=== PATIENT | female | born 1960 | race Caucasian/White ===

== ENCOUNTER 2019-12-11 13:17 | Outpatient (CLI) | payer OTHER, SELFPAY ==
--- NOTE | 2019-12-11 13:30 | XR_ITS ---
WS: [id number] RIGHT KNEE: 3 VIEW(S) TECHNIQUE: AP, oblique(s) and lateral. HISTORY: KNEE PAIN COMPARISON: 08/24/2011 No fracture or dislocation. No joint space narrowing or osteophytes. Small suprapatellar effusion. No soft tissue abnormality. XR/XR knee RT 3V* [id number] IMPRESSION: Small suprapatellar effusion. Otherwise negative.
== END 2019-12-11 13:18 | disposition home or self-care (01) ==
LOC: RADWPI 13:23
PROVIDERS: Family Provider Family Medicine; PCP Family Medicine; Visit Provider Physician Assistant
DX: M25.561 Pain in right knee (principal); M25.461 Effusion, right knee
CPT/HCPCS: 73562

== ENCOUNTER 2020-04-16 10:32 | Outpatient (CLI) | payer OTHER, SELFPAY ==
--- NOTE | 2020-04-16 10:35 | MM_ITS ---
WS: [id number] Exam: [place] [id number] Date/Time of Exam: 04/16/2020 10:49 AM Reason For Exam: SCREENING VIEWS: MLO and CC views both breasts. Comparison made with prior exam of 12/16/2016. Findings: There was no sign of mass, architectural distortion or suspicious calcification in either breast. He terogeneously dense MM/[place] [id number] Impression: BI-RADS: 2-Benign FOLLOW-UP: 1 Year Follow-up This mammogram was also analyzed by the Computer Aided Detection System [employer].
== END 2020-04-16 10:33 | disposition home or self-care (01) ==
LOC: RADSHAW 10:34
PROVIDERS: Family Provider Family Medicine; PCP Family Medicine; Visit Provider Family Medicine
DX: Z12.31 Encounter for screening mammogram for malignant neoplasm of breast (principal)
CPT/HCPCS: 77067

== ENCOUNTER → 2021-07-15 15:56 | Outpatient (BNVA) | payer SELFPAY | PROVIDERS: Referring Provider Family Medicine; Visit Provider Podiatrist Foot & Ankle Surgery | DX: M79.671 Pain in right foot (principal); M21.611 Bunion of right foot | CPT/HCPCS: 73630 ==

== ENCOUNTER 2022-02-10 14:03 | Outpatient (CLI) | payer OTHER, SELFPAY ==
--- NOTE | 2022-02-10 14:14 | MM_ITS ---
WS: [id number] BILATERAL SCREENING DIGITAL TOMOSYNTHESIS MAMMOGRAM WITH CAD HISTORY: SCREENING COMPARISON: 04/16/2020 and 03/14/2019 Bilateral CC and MLO views with tomosynthesis and synthetic mammography submitted. Computer aided det ection analyzed. Breast composition: The breasts are heterogeneously dense, which may obscure small masses. No suspici ous masses, microcalcifications or architectural distortion. Benign calcification LEFT breast. MM/[place] [id number] IMPRESSION: BI-RADS: 2-Benign FOLLOW UP: 1 Year Follow-up
== END 2022-02-10 14:04 | disposition home or self-care (01) ==
LOC: RAD 14:05
PROVIDERS: PCP Family Medicine; Visit Provider Family Medicine
DX: Z12.31 Encounter for screening mammogram for malignant neoplasm of breast (principal)
CPT/HCPCS: 77063; 77067

== ENCOUNTER 2022-03-31 06:52 | Outpatient (CLI) | payer SELFPAY ==
[2022-03-31 07:53] LABS: HF Add Manual Diff No
[2022-03-31 08:20] LABS: Estmated Average Glucose 105; Hemoglobin A1C 5.3 % (4.0-6.0)
[2022-03-31 08:45] LABS: Basophils # 0.1 10^3/uL (0.0-0.1); Basophils % 0.5 %; Eosinophils # 0.3 10^3/uL (0.0-0.8); Hemoglobin 12.7 g/dL (11.5-15.3); Lymphocytes # 2.3 10^3/uL (0.8-4.8); Lymphocytes % 24.1 %; Mean Corpuscular HGB Conc 31.8 g/dL (30.0-36.0); Mean Corpuscular Hemoglobin 27.6 pg (28.0-34.0); Mean Platelet Volume 9.7 fL (7.4-10.4); Monocytes # 0.7 10^3/uL (0.2-0.9); Monocytes % 6.9 %; Neutrophils # 6.18 10^3/uL (1.8-7.7); Neutrophils % 64.7 %; Nucleated Red Blood Cells % 0 %; Platelet Count 397 10^3/cmm (130-400); Red Cell Distribution Width 13.2 % (12.1-15.1); White Blood Count 9.6 10^3/uL (4.0-10.0)
[2022-03-31 08:52] LABS: 25 Hydroxy Vitamin D 31 ng/mL (30-100); Alanine Aminotransferase 16 U/L (0-33); Alkaline Phosphatase 102 U/L (35-105); Anion Gap 14.6 (5-19); Aspartate Amino Transferase 15 U/L (0-32); Blood Urea Nitrogen 11 mg/dL (8-23); Calcium 9.3 mg/dL (8.5-10.5); Carbon Dioxide 28 mmol/L (22-29); Chloride 98 mmol/L (98-107); Chol HDL Ratio 4.74 mg/dL (0.0-4.40); Cholesterol 313 mg/dL (0-200); Globulin 3.2 g/dL (1.3-4.6); Glomerular Filtration Rate 125.4 mL/min (90-130); Glucose 102 mg/dL (65-115); HDL Cholesterol 66 mg/dL (60-100); LDL Cholesterol Calculated 202 mg/dL (50-129); LDL HDL Ratio 3.06 RATIO (0.00-3.22); Osmolality Calculated 284 mOsm/kg (285-295); Potassium 3.6 mmol/L (3.5-5.1); Sodium 137 mmol/L (136-145); Thyroid Stimulating Hormone 2.21 uIU/mL (0.27-4.20); Total Bilirubin 0.4 mg/dL (0.15-1.2); Total Protein 7.2 g/dL (6.6-8.7); Triglycerides 224 mg/dL (0-150)
== END 2022-03-31 06:53 | disposition home or self-care (01) ==
LOC: LAB 06:56
PROVIDERS: PCP Family Medicine; Visit Provider Dermatology
DX: Z01.89 Encounter for other specified special examinations (principal)
CPT/HCPCS: 36415

== ENCOUNTER → 2022-10-27 15:30 | Outpatient (BNVA) | payer OTHER, SELFPAY | PROVIDERS: PCP Family Medicine; Visit Provider Family Medicine | DX: M19.079 Primary osteoarthritis, unspecified ankle and foot (principal); M21.611 Bunion of right foot; S91.002A Unspecified open wound, left ankle, initial encounter; X58.XXXA Exposure to other specified factors, initial encounter | CPT/HCPCS: 87070 ==

== ENCOUNTER 2023-02-08 07:50 | Outpatient (CLI) | payer OTHER, SELFPAY ==
[2023-02-08 08:30] LABS: Chol HDL Ratio 5.71 mg/dL (0.0-4.40); Cholesterol 297 mg/dL (0-200); HDL Cholesterol 52 mg/dL (60-100); LDL Cholesterol Calculated 183 mg/dL (50-129); LDL HDL Ratio 3.52 RATIO (0.00-3.22); Triglycerides 312 mg/dL (0-150)
== END 2023-02-08 07:51 | disposition home or self-care (01) ==
PROVIDERS: PCP Family Medicine; Visit Provider Family Medicine
DX: E78.5 Hyperlipidemia, unspecified (principal)
CPT/HCPCS: 36415; 80061

== ENCOUNTER 2023-03-19 12:46 | Outpatient (CLI) | payer OTHER, SELFPAY ==
--- NOTE | 2023-03-19 12:58 | MM_ITS ---
WS: [id number] BILATERAL SCREENING DIGITAL TOMOSYNTHESIS MAMMOGRAM WITH CAD HISTORY: SCREENING COMPARISON: 02/10/2022, 04/16/2020 and 03/14/2019 Bilateral CC and MLO views with tomosynthesis and synthetic mammography submitted. Computer aided det ection analyzed. Breast composition: There are scattered areas of fibroglandular density. No suspicious masses, microc alcifications or architectural distortion. Benign calcification in the anterior LEFT breast. IMPRESSION: MM/[place] [id number] BI-RADS: 2-Benign FOLLOW UP: 1 Year Follow-up
== END 2023-03-19 12:47 | disposition home or self-care (01) ==
LOC: RAD 12:46
PROVIDERS: PCP Family Medicine; Visit Provider Family Medicine
DX: Z12.31 Encounter for screening mammogram for malignant neoplasm of breast (principal)
CPT/HCPCS: 77063; 77067

== ENCOUNTER 2024-04-18 07:17 | Outpatient (CLI) | payer OTHER, SELFPAY ==
--- NOTE | 2024-04-18 07:30 | MM_ITS ---
WS: [id number] Bilateral screening 3D tomosynthesis digital mammogram, 04/18/2024 7:31 AM Clinical Data: SCREENING Comparison: 03/19/2023, 03/23/2022, 04/16/2020, 03/14/2019, 02/28/2018, 11/19/2016, 11/26/2015, 11/14/2014, 10/17/2013, 12/09/2012, 11/06/2011, 10/29/2010, 10/17/2008, 02/16/2007, 01/15/2006. Findings: No spiculated masses or clustered calcifications are seen. There are no secondary signs of carcinoma . In the upper outer quadrant of the right breast on the MLO view at the 10 to 11 o'clock position th ere is a small density. There may be 2 densities on the lateral aspect of the right breast noted on t he cc view. MM/MM scr BI tomosynthesis [id number] Impression: 1. Small densities in upper outer quadrant right breast at 10 to 11 o'clock pos ition are recommended repeat cc view with compression and ML view, a right kina st ultrasound in the upper outer quadrant of the right breast is recommended BIRADS: 0 - Incomplete: Need additional imaging evaluation FOLLOW UP: See Report DENSITY: The breasts are heterogeneously dense, which may obscure small masses. The CAD freight checker was used
== END 2024-04-18 07:18 | disposition home or self-care (01) ==
PROVIDERS: PCP Family Medicine; Visit Provider Family Medicine
DX: Z12.31 Encounter for screening mammogram for malignant neoplasm of breast (principal); N63.11 Unspecified lump in the right breast, upper outer quadrant
CPT/HCPCS: 77063; 77067

== ENCOUNTER 2024-04-27 07:12 | Outpatient (CLI) | payer OTHER, SELFPAY ==
--- NOTE | 2024-04-27 08:00 | MM_ITS ---
WS: [id number] Right breast diagnostic 3D tomosynthesis digital mammogram, 04/27/2024 Clinical Data: densities in upper outer quadrant right breast at 10 to 11 Comparison: 04/18/2024 Findings: Additional views of the right breast in the CC and MLO projection with compression were obtained. An additional ML view was obtained. The densities noted in the upper outer quadrant of the right breast are not present today. Only normal breast tissue is seen. There are no spiculated masses or clustered calcifications. MM/MM diag RT tomosynthesis [id number] Impression: 1. Negative right breast mammogram. 2. Right breast ultrasound. DENSITY: The breasts are heterogeneously dense, which may obscure small masses. BIRADS: 1 - Negative FOLLOW UP: 1 Year Follow-up The CAD tray checker was used.
--- NOTE | 2024-04-27 08:30 | US_ITS ---
WS: [id number] Right breast ultrasound, 04/27/2024 Clinical Data: densities in upper outer quadrant right breast at 10 to 11 Comparison: Mammogram, 04/18/2024, right breast ultrasound, 01/21/2006. Findings: Imaging of the right breast at the 10 to 11 o'clock position revealed only normal breast tissue. Ther e were no cysts or masses. US/US breast RT limited* [id number] Impression: 1. Normal right breast ultrasound. 2. Recommend annual screening mammograms. BIRADS: 1 - Negative FOLLOW UP: 1 Year Follow-up
== END 2024-04-27 07:13 | disposition home or self-care (01) ==
LOC: RAD 07:15
PROVIDERS: PCP Family Medicine; Visit Provider Family Medicine
DX: R92.8 Other abnormal and inconclusive findings on diagnostic imaging of breast (principal); R92.331 Mammographic heterogeneous density, right breast
CPT/HCPCS: 76642; 77061; G0279

== ENCOUNTER → 2024-05-15 16:27 | Outpatient (BNVA) | payer OTHER, SELFPAY | PROVIDERS: PCP Family Medicine; Visit Provider Family Medicine | DX: Z12.4 Encounter for screening for malignant neoplasm of cervix (principal) | CPT/HCPCS: 87624 ==

== ENCOUNTER 2024-09-28 07:13 | Outpatient (CLI) | payer SELFPAY ==
[2024-09-28 08:02] LABS: HF Add Manual Diff No
[2024-09-28 08:12] LABS: Basophils # 0.1 10^3/uL (0.0-0.1); Basophils % 0.6 %; Eosinophils # 0.2 10^3/uL (0.0-0.8); Eosinophils % 2.4 %; Hematocrit 41.1 % (36-47); Lymphocytes # 2.3 10^3/uL (0.8-4.8); Lymphocytes % 26.6 %; Mean Corpuscular HGB Conc 32.4 g/dL (30-55); Mean Corpuscular Hemoglobin 28.9 pg (27-33); Mean Corpuscular Volume 89.2 fl (85-98); Mean Platelet Volume 9.5 fL (7.4-10.4); Monocytes # 0.7 10^3/uL (0.2-0.9); Monocytes % 7.5 %; Neutrophils # 5.47 10^3/uL (1.8-7.7); Neutrophils % 62.3 %; Nucleated Red Blood Cells % 0 %; Platelet Count 357 10^3/cmm (157-399); Red Blood Count 4.61 10^6/uL (3.85-5.65); White Blood Count 8.77 10^3/uL (3.29-11.43)
[2024-09-28 08:28] LABS: Estmated Average Glucose 108; Hemoglobin A1C 5.4 % (4.0-6.0)
[2024-09-28 08:42] LABS: Alanine Aminotransferase 16 U/L (0-33); Albumin Level 4.2 g/dL (3.5-5.2); Alkaline Phosphatase 90 U/L (35-105); Anion Gap 18.7 (5-19); Aspartate Amino Transferase 14 U/L (0-32); Blood Urea Nitrogen 15 mg/dL (8-23); Calcium 9.3 mg/dL (8.5-10.5); Carbon Dioxide 27 mmol/L (22-29); Chloride 98 mmol/L (98-107); Chol HDL Ratio 4.08 mg/dL (0.0-4.40); Cholesterol 253 mg/dL (0-200); Globulin 2.9 g/dL (1.3-4.6); Glomerular Filtration Rate 124.6 mL/min (90-130); Glucose 97 mg/dL (65-115); HDL Cholesterol 62 mg/dL (60-100); LDL Cholesterol Calculated 139 mg/dL (50-129); LDL HDL Ratio 2.24 RATIO (0.00-3.22); Osmolality Calculated 291 mOsm/kg (285-295); Potassium 3.7 mmol/L (3.5-5.1); Sodium 140 mmol/L (136-145); Total Bilirubin 0.4 mg/dL (0.15-1.2); Total Protein 7.1 g/dL (6.6-8.7); Triglycerides 262 mg/dL (0-150)
== END 2024-09-28 07:14 | disposition home or self-care (01) ==
LOC: LAB 07:14
PROVIDERS: PCP Family Medicine; Visit Provider Dermatology
DX: Z01.89 Encounter for other specified special examinations (principal)
CPT/HCPCS: 36415

== ENCOUNTER 2025-01-10 06:49 | Day surgery (SDC) | payer OTHER, SELFPAY ==
[2025-01-10 07:12] VITALS: BP 144/103; PULSE 87; RESP 18; TEMP 36.1; O2SAT 96
--- NOTE | 2025-01-10 07:20 | W.PM.OPSUD ---
Surgery/Procedure H&P Update DATE OF PROCEDURE: January 10, 2025 DATE H&P PERFORMED: 12/19/24 H&P UPDATE INFORMATION: I have reviewed H&P completed within last 30 days, I have examined patient prior to procedure, No changes to prior documentation, H&P is in [facility] EMR on date indicated and Risks and benefits of the procedure reviewed PLANNED PROCEDURE: Operation Date: 01/10/25 08:20 Proposed Procedures p Colonoscopy 59303 G0121 Z12.11(Not Applicable) - Kavon Jameson MD
--- NOTE | 2025-01-10 07:30 | ANES.PREANE2 ---
Pre-Anesthetic Assessment Height/Weight: Height 1.22 m Temp Pulse Resp BP Pulse Ox 97.0 F L 87 18 144/103 96 01/10/25 07:12 01/10/25 07:12 01/10/25 07:12 01/10/25 07:12 01/10/25 07:12 Operation Date: 01/10/25 08:20 Proposed Procedures p Colonoscopy 09989 G0121 Z12.11(Not Applicable) - Kavon Jameson MD Familial anesthetic complications: none Was Beta Hema taken within 24 hours: Yes Was Clonidine taken within 24 hours: N/A Last intake: Intake Last Liquid Date 01/09/25 Last Liquid Time 18:00 Last Solid Date 01/08/25 Last Solid Time 23:00 Social No alcohol and No tobacco Exam alert and oriented x 3 Airway Submandibular: within normal limits Cervical ROM: within normal limits Mallampati: Class III Dentition: full Pulmonary Asthma and Sleep Apnea CV/HEM Hypertension None reported Hepatic None reported GI Gastroesophageal Reflux Disease Metabolic Hyperlipidemia and Morbid Obesity [facility] [place] None reported Neuropsych Anxiety Anesthetic Plan ASA status: 3 Anesthesia: Anesthesia Evaluation and MAC Risk of > 500 ml blood loss (7ml/kg in children): No Medications/Allergies Home Medications ?Medication ?Instructions ?Recorded ?Confirmed ?Last Taken ?Type estradiol 2 mg tablet 2 mg PO DAILY 07/15/21 01/09/25 01/09/25 20:00 History albuterol sulfate 90 mcg/actuation 2 puff inhalation Q6H PRN 10/11/24 01/09/25 01/09/25 20:00 Rx aerosol inhaler (Ventolin HFA) shortness of breath or wheezing #6.7 grams evolocumab 140 mg/mL subcutaneous 140 mg SUBCUT .[id number] 01/09/25 01/09/25 01/09/25 20:00 History pen injector (Repatha SureClick) fluticasone furoate 200 1 inh inhalation DAILY 01/09/25 01/09/25 01/09/25 20:00 History mcg/actuation blister powder for inhalation (Arnuity Ellipta) losartan 100 1 tab PO DAILY 01/09/25 01/09/25 01/09/25 20:00 History mg-hydrochlorothiazide 25 mg tablet meloxicam 15 mg tablet 15 mg PO DAILY PRN Pain 0901/09/25 01/09/25 20:00 History metoprolol succinate 50 mg 50 mg PO DAILY 01/09/25 01/09/25 01/09/25 20:00 History tablet,extended release 24 hr montelukast 10 mg tablet 10 mg PO DAILY 01/09/25 01/09/25 01/09/25 20:00 History omeprazole 40 mg capsule,delayed 40 mg PO DAILY 01/09/25 01/09/25 01/09/25 20:00 History release Allergies Allergy/AdvReac Type Severity Reaction Status Date / Time codeine Allergy ADR-Vomitin Verified 01/10/25 07:13 g Safgqrn-MKI-OpL Reductase Allergy joint pain Verified 01/10/25 07:13 Inhibitor Current Medications Generic Name Dose Route Start Last Admin Trade Name Freq PRN Reason Stop Dose Admin Sodium Chloride 1,000 mls @ 15 mls/hr 01/10/25 06:55 01/10/25 07:13 Sodium Chloride 0.9% IV 01/11/25 06:54 15 mls/hr .Q24H PRN Administration COLONOSCOPY FLUIDS PFSH Anesthesia Medical History Anxiety Hyperlipidemia Asthma GERD (gastroesophageal reflux disease) Hypertension Surgical History (Updated 12/19/24 @ 14:34 by SHANE Renner) History of arthroscopy of left knee History of cholecystectomy History of hysterectomy Family History Sister CAD (coronary artery disease) Stroke Mother CAD (coronary artery disease) Denies family history of Diabetes Chronic kidney disease (CKD) Cancer Social History Smoking and tobacco/nicotine status: never used tobacco/nicotine Alcohol intake: never Substance/Drug Use: never Household members: spouse Marital status: Number of children: 3 Number of grandchildren: 2 Current occupational status: employed Current occupation: xr tech & mammo at [employer] Roxanna/Nondenominational: Anglican Special roxanna needs: No Agree to transfusion: Yes
[2025-01-10 08:18] VITALS: BP 105/65; PULSE 82; RESP 18; TEMP 36.6; O2SAT 95
[2025-01-10 08:29] VITALS: BP 122/73; PULSE 85; RESP 18; O2SAT 96
--- NOTE | 2025-01-10 08:33 | ANE.PACU2 ---
Inpatient post-anesthesia follow up: Airway intact: Yes Vital signs: Temperature 97.8 F Pulse Rate 85 Respiratory Rate 18 Blood Pressure 122/73 Pulse Oximetry 96 Oxygen Delivery Me thod Room Air Oxygen Flow Rate Fraction of Inspir ed Oxygen Hydration adequate: Yes Nausea and vomiting: No Pain level: 1 Mental status: Baseline
== END 2025-01-10 08:35 | disposition home or self-care (01) ==
PROVIDERS: PCP Family Medicine; Visit Provider Surgery
PROC: 0DJD8ZZ Inspection of Lower Intestinal Tract, Via Natural or Artificial Opening Endoscopic (ICD-10-PCS; CPT 45378; principal; 2025-01-10 08:20)
DX: Z12.11 Encounter for screening for malignant neoplasm of colon (principal); K64.8 Other hemorrhoids; D12.0 Benign neoplasm of cecum; J45.909 Unspecified asthma, uncomplicated; G47.30 Sleep apnea, unspecified; K21.9 Gastro-esophageal reflux disease without esophagitis; E78.5 Hyperlipidemia, unspecified; E66.01 Morbid (severe) obesity due to excess calories; F41.9 Anxiety disorder, unspecified; I10 Essential (primary) hypertension
CPT/HCPCS: 45380; 88305; J2704; J7030